=== PATIENT | female | born 1960 | race Caucasian/White ===

== ENCOUNTER → 2018-03-10 | Outpatient (REF) | LOC: M SMT 11:25 | DX: Z00.00 Encounter for general adult medical examination without abnormal findings (principal) ==

== ENCOUNTER → 2018-05-19 | Outpatient (REF) ==
--- NOTE | 2018-05-20 02:36 | REP ---
Clinical: Pain. Technique: AP, lateral, bilateral oblique and sunrise views of the right knee. Findings: Advanced tricompartmental osteoarthritic degenerative changes are appreciated including osteophytosis, subchondral sclerosis, joint space narrowing, chondrocalcinosis and possible intra-articular loose bodies. No acute fracture dislocation. No effusion. Impression: Advanced tricompartmental osteoarthritic degenerative changes. Electronically Signed by Dayday Woodall MD 05/20/2018 02:27 A
== END ==
LOC: M SMT 14:16
PROVIDERS: ATTEND Internal Medicine
DX: Z02.89 Encounter for other administrative examinations (principal)